=== PATIENT | male | born 1990 | race Caucasian/White ===

== ENCOUNTER 2017-06-20 17:25 | Inpatient (IN) | payer MEDICAID ==
[~2017-06-20] VITALS: Ht 195.5 cm; Wt 74.9 kg
[2017-06-20 17:32] VITALS: BP 132/74
[2017-06-20 17:48] LABS: BILIRUBIN NEGATIVE (NEGATIVE); BLOOD NEGATIVE (NEGATIVE); CLARITY CLEAR (CLEAR); COLOR YELLOW (YELLOW); GLUCOSE NEGATIVE (NEGATIVE); KETONE NEGATIVE (NEGATIVE); LEUKO ESTERASE NEGATIVE (NEGATIVE); NITRITE NEGATIVE (NEGATIVE); UROBILINOGEN 0.2 E.U./dl (0.2-1.0)
[2017-06-20 17:54] LABS: EPITHELIAL CELLS 0-2; WBC 0-2 wbc/hpf (0-5)
[2017-06-20 17:55] LABS: BACTERIA 2+; MUCOUS TRACE
[2017-06-20 17:57] LABS: URINE AMPHETAMINES < 1000 (1000ng/ml); URINE BARBITURATES < 200 (200ng/ml); URINE BENZODIAZEPINES < 200 (200ng/ml); URINE CANNABINOIDS (THC) < 50 (50ng/ml); URINE COCAINE < 300 (300ng/ml); URINE METHADONE < 300 (300ng/ml); URINE OPIATES > 300 (300ng/ml)
[2017-06-20 17:58] LABS: URINE PHENCYCLIDINE < 25 (25ng/ml)
[2017-06-20 18:09] LABS: BASO # 0.1 10*3/uL (0.0-0.1); BASO % 0.8 % (0.0-1.0); EOS # 0.3 10*3/uL (0.0-0.4); HEMATOCRIT 41.1 % (42.0-52.0); HEMOGLOBIN 13.5 g/dl (14.0-18.0); LYMPH # 3.3 10*3/uL (1.3-4.4); LYMPH % 37.3 % (27.0-41.0); MEAN CELL VOLUME 88.6 fl (80.0-94.0); MEAN CORPUSCULAR HGB 29.1 pg (27.0-31.0); MEAN CORPUSCULAR HGB CONC 32.8 g/dl (33.0-37.0); MEAN PLATELET VOLUME 9.2 fl (9.6-12.3); MONO # 0.5 10*3/uL (0.1-1.0); NEUT # 4.6 10*3/uL (2.3-7.9); NEUT % 52.2 % (47.0-73.0); PLATELET COUNT AUTOMATED 319 10*3/uL (130-400); RED BLOOD COUNT 4.64 10*6/uL (4.50-5.90); RED CELL DISTRI WIDTH 13.7 % (0-14.5); WHITE BLOOD COUNT 8.9 10*3/uL (4.8-10.8)
[2017-06-20 18:26] LABS: ALBUMIN 3.7 gm/dl (3.1-4.5); ALKALINE PHOSPHATASE 68 U/L (45-117); BUN 13 mg/dl (7-24); CHLORIDE 100 mmol/L (98-107); CREATININE 0.93 mg/dL (0.70-1.30); POTASSIUM 4.2 mmol/L (3.5-5.1); SGOT/AST 11 IU/L (3-35); SGPT/ALT 16 U/L (12-78); SODIUM 137 mmol/L (136-145); TOTAL PROTEIN 7.7 gm/dL (6.4-8.2)
[2017-06-20 18:30] LABS: ETHYL ALCOHOL < 3.0 mg/dl (<3)
[2017-06-20 19:04] VITALS: BP 128/70
[2017-06-20 20:00] VITALS: BP 128/70
[2017-06-21] VITALS: BP 114/56
[2017-06-21 04:00] VITALS: BP 103/48
[2017-06-21 08:00] VITALS: BP 113/62
[2017-06-21 08:55] LABS: VITAMIN D, 25-HYDROXY 22.9 ng/mL (30-100)
[2017-06-21 12:00] VITALS: BP 111/58
[2017-06-21 16:00] VITALS: BP 115/67
[2017-06-21 20:00] VITALS: BP 117/57
[2017-06-22] VITALS: BP 115/60
[2017-06-22 08:00] VITALS: BP 108/58
[2017-06-22 12:00] VITALS: BP 121/68
[2017-06-22 16:00] VITALS: BP 127/65
[2017-06-22 20:00] VITALS: BP 132/68
[2017-06-23] VITALS: BP 121/65
[2017-06-23 06:27] LABS: BASO # 0.1 10*3/uL (0.0-0.1); EOS # 0.4 10*3/uL (0.0-0.4); EOS % 4.6 % (1.0-4.0); HEMATOCRIT 43.7 % (42.0-52.0); HEMOGLOBIN 13.8 g/dl (14.0-18.0); LYMPH # 3.4 10*3/uL (1.3-4.4); LYMPH % 44.2 % (27.0-41.0); MEAN CELL VOLUME 91.2 fl (80.0-94.0); MEAN CORPUSCULAR HGB 28.8 pg (27.0-31.0); MEAN CORPUSCULAR HGB CONC 31.6 g/dl (33.0-37.0); MEAN PLATELET VOLUME 9.3 fl (9.6-12.3); MONO # 0.5 10*3/uL (0.1-1.0); NEUT # 3.2 10*3/uL (2.3-7.9); NEUT % 41.2 % (47.0-73.0); PLATELET COUNT AUTOMATED 282 10*3/uL (130-400); RED BLOOD COUNT 4.79 10*6/uL (4.50-5.90); RED CELL DISTRI WIDTH 13.9 % (0-14.5); WHITE BLOOD COUNT 7.7 10*3/uL (4.8-10.8)
[2017-06-23 06:52] LABS: CREATININE 0.91 mg/dL (0.70-1.30)
[2017-06-23 08:00] VITALS: BP 108/69
[2017-06-23 12:00] VITALS: BP 112/57
[2017-06-23] MEDS ORDERED: ZOFRAN 4 MG ED2 TAB PO (13:06)
[2017-06-23] MEDS ORDERED: ATARAX,VISTARIL50 MG PO (13:06)
== END 2017-06-23 14:18 | disposition home or self-care (01) | DRG 897 ==
LOC: ED 17:25 → EDHOLD 18:22 → 5E 18:22
PROVIDERS: Emergency Medicine; Nurse Practitioner Family; Student in an Organized Health Care Education/Training Program
DX: F11.23 Opioid dependence with withdrawal (principal); D64.9 Anemia, unspecified; G25.81 Restless legs syndrome; R19.7 Diarrhea, unspecified; R82.71 Bacteriuria; R03.0 Elevated blood-pressure reading, without diagnosis of hypertension; F32.9 Major depressive disorder, single episode, unspecified; R51 Headache; F41.9 Anxiety disorder, unspecified; Z90.89 Acquired absence of other organs; Z71.6 Tobacco abuse counseling; Z72.0 Tobacco use